=== PATIENT | male | born 1995 | race Caucasian/White ===

== ENCOUNTER 2020-01-07 03:30 | Emergency (ER) | payer BC ==
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
--- NOTE | 2020-01-07 05:10 | ER ---
Nurse's Notes [facility] Name: Matty Roberson Age: 24 yrs Sex: Male : 1995 Arrival Date: 01/07/2020 Time: 03:31 Bed 4 Private MD: Diagnosis: Hand Contusion;Intoxication Presentation: 01/06 03:32 Chief complaint: EMS states: pt altered per EMS, EMS state the patient having been sg combative behavior but redirected with verbal instruction. Coronavirus screen: Proceed with normal triage. Ebola Screen: Patient negative for fever greater than or equal to 101.5 degrees Fahrenheit, and additional compatible Ebola Virus Disease symptoms Patient denies exposure to infectious person. Patient denies travel to an Ebola-affected area in the 21 days before illness onset. No symptoms or risks identified at this time. Initial Sepsis Screen: Does the patient meet any 2 criteria? No. Patient's initial sepsis screen is negative. Does the patient have a suspected source of infection? No. Patient's initial sepsis screen is negative. Risk Assessment: Do you want to hurt yourself or someone else? Patient reports no desire to harm self or others. Onset of symptoms was January 07, 2020. Care prior to arrival: None. 03:32 Method Of Arrival: EMS: [facility] sg 03:32 Acuity: ELIAN 2 sg Historical: - Allergies: 03:36 No Known Allergies; sg - PMHx: 03:36 Asthma; ADD/ADHD; sg - PSHx: 03:36 Hand Surgery; sg - Immunization history:: Adult Immunizations up to date. - Social history:: Smoking status: Patient denies any tobacco usage or history of. Screenin:43 Abuse screen: Denies threats or abuse. Denies injuries from another. Nutritional rv screening: No deficits noted. Tuberculosis screening: No symptoms or risk factors identified. Fall Risk None identified. Assessment: 03:42 General: Appears comfortable, Behavior is quiet. Pain: Unable to use pain scale. rv Patient is disoriented. Neuro: Level of Consciousness is awake, confused, Oriented to person, place. Cardiovascular: Patient's skin is warm and dry. Rhythm is sinus rhythm. Respiratory: Airway is patent Respiratory effort is even, unlabored, Breath sounds are clear bilaterally. Derm: Skin is intact. Derm: Bruising that is on dorsum of left foot. 03:50 Reassessment: Patient appears in no apparent distress at this time. pt family at sg bedside at this time, pt is alert and oriented to place and person at this time, pt appears calm, cooperative. 04:17 Neuro: Level of Consciousness is awake, obeys commands, confused, Oriented to person, rv place, situation. 05:10 Neuro: Level of Consciousness is awake, alert, obeys commands, Oriented to person, rv place, time, situation. Vital Signs: 03:39 BP 146 / 74; Pulse 65; Resp 22; Temp 98; Pulse Ox 100% on R/A; Weight 95.25 kg; Height rv 5 ft. 10 in. (177.80 cm); 04:20 BP 152 / 65; Pulse 71; Resp 19; Pulse Ox 97% on R/A; rv 03:39 Body Mass Index 30.13 (95.25 kg, 177.80 cm) rv [place] Coma Score: 04:21 Eye Response: spontaneous(4). Verbal Response: confused(4). Motor Response: obeys rv commands(6). Total: 14. ED Course: 03:30 Inserted saline lock: 20 gauge in right antecubital area, using aseptic technique. rr5 03:31 Patient arrived in ED. ds1 03:34 Triage completed. sg 03:34 Arm band placed on. sg 03:39 Sanjay Goncalves, CELSO is Primary Nurse. rv 03:40 Vance Wylie MD is Attending Physician. mh7 03:43 Patient has correct armband on for positive identification. Placed in gown. Bed in low rv position. Call light in reach. Side rails up X2. Adult w/ patient. 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 Pulse ox on. NIBP on. 04:18 No provider procedures requiring assistance completed. rv 04:33 Hand Left 3 View XRAY In Process Unspecified. EDMS 05:10 IV discontinued, intact, bleeding controlled, No redness/swelling at site. Pressure rv dressing applied. Administered Medications: No medications were administered Outcome: 05:09 Discharge ordered by . mh7 05:09 Discharged to home ambulatory, with family. rv 05:09 Condition: good 05:09 Discharge instructions given to patient, family, Instructed on discharge instructions, follow up and referral plans. Demonstrated understanding of instructions, follow-up care. 05:10 Patient left the ED. rv Signatures: Dispatcher [employer] EDMS Todd oSto RN CELSO Juan Ramon, Olivia ds1 Sanjay Goncalves RN RN rv Montana Castro RN RN rr5 Vance Wylie MD MD mh7 Corrections: (The following items were deleted from the chart) 04:22 04:21 GCS: 15, rv rv 04:23 04:17 Neuro: Level of Consciousness is awake, alert, obeys commands, Oriented to rv person, place, time, situation, rv
[2020-01-07 05:29] VITALS: TEMP 98
[2020-01-07 05:31] VITALS: BP 152/65; O2SAT 97
--- NOTE | 2020-01-07 11:10 | RAD REPORT ---
EXAM DESCRIPTION: RAD - Hand Left 3 View - 01/07/2020 4:33 am CLINICAL HISTORY: trauma Pain and swelling COMPARISON: Hand Left 3 View dated 12/16/2012 FINDINGS: Soft tissue swelling is seen along the dorsum of the hand. Hardware plate is noted third m etacarpal shaft without complication seen. No acute fracture evident.
== END 2020-01-07 05:10 | disposition home or self-care (01) ==
LOC: ER 03:30
DX: S60.222A Contusion of left hand, initial encounter (principal); F10.129 Alcohol abuse with intoxication, unspecified; Y93.72 Activity, wrestling; Y92.89 Other specified places as the place of occurrence of the external cause
CPT/HCPCS: 93005; 99284